=== PATIENT | male | born 1960 | race Caucasian/White ===

== ENCOUNTER 2018-01-02 11:37 | Inpatient (IN) | payer SELFPAY ==
[~2018-01-02] VITALS: Ht 172.7 cm; Wt 69.9 kg
[2018-01-02] MEDS ORDERED: SODIUM CHLORIDE 0.9% 1,000 ML IV ONE (11:50)
[2018-01-02] MEDS ORDERED: GABAPENTIN 300MG CAPSULE PO SCH (12:00)
[2018-01-02 12:43] LABS: CHLORIDE 105 mEq/L (98-107)
[2018-01-02 12:47] LABS: PHOSPHORUS 3.2 mg/dL (2.5-4.9)
[2018-01-02 12:49] LABS: ETHANOL BLOOD < 10 mg/dL
[2018-01-02 13:01] LABS: BASOPHILS % 0.6 % (0.0-2.0); EOSINOPHILS % 2.6 % (0.0-5.0); HEMATOCRIT. 40.9 % (42.0-52.0); HEMOGLOBIN. 13.7 g/dL (14.0-18.0); LYMPHOCYTES % 18.9 % (20.0-50.0); MEAN CORPUSCULAR HEMOGLOBIN 31.8 pg (28.0-32.0); MEAN CORPUSCULAR VOLUME 94.7 fL (80.0-94.0); MEAN PLATELET VOLUME 9.1 fl (7.4-10.4); NEUTROPHILS % 70.9 % (40.0-76.0); PLATELET 221 x1000/uL (130-400); RED BLOOD CELL COUNT 4.31 mill/uL (4.7-6.1); RED CELL DISTRIBUTION WIDTH 14.2 % (11.6-14.6)
[2018-01-02] MEDS ORDERED: CHLORDIAZEPOXIDE 25MG CAPSULE PO ONE (15:15)
[2018-01-02] MEDS ORDERED: MAGNESIUM/ALUMINUM HYDROXIDE/SIMETHICONE 30ML UDC PO PRN (15:45)
[2018-01-02] MEDS ORDERED: CLONIDINE 0.1MG TABLET PO PRN (15:45)
[2018-01-02] MEDS ORDERED: DOCUSATE SODIUM 100MG CAPSULE PO PRN (15:45)
[2018-01-02] MEDS ORDERED: LORAZEPAM 0.5MG TABLET PO PRN (15:45)
[2018-01-02] MEDS ORDERED: ACETAMINOPHEN 325MG TABLET PO PRN (15:45)
[2018-01-02] MEDS ORDERED: NITROGLYCERIN 0.4MG TABLET SL SL PRN (15:45)
[2018-01-02] MEDS ORDERED: GUAIFENESIN 200MG/10ML SUGAR FREE UDC PO PRN (15:45)
[2018-01-02] MEDS ORDERED: DIPHENHYDRAMINE 50MG/ML VIAL IV PRN (15:45)
[2018-01-02] MEDS ORDERED: IPRATROPIUM/ALBUTEROL 0.5-3(2.5)MG/3ML NEB INH PRN (15:45)
[2018-01-02] MEDS ORDERED: ONDANSETRON HCL 4MG/2ML VIAL IV PRN (15:45)
[2018-01-02] MEDS ORDERED: KETOROLAC 15MG/ML VIAL IV PRN (16:18)
[2018-01-02] MEDS ORDERED: NA PHOS,M-B/NA PHOS,DI-BA ENEMA 118ML PR PRN (16:30)
[2018-01-02 18:00] VITALS: BP 124/78
[2018-01-02] MEDS ORDERED: ONDANSETRON 4MG ODT PO PRN (18:00)
[2018-01-02] MEDS ORDERED: ENOXAPARIN 40MG/0.4ML SYR SUBCUT SCH (18:00)
[2018-01-02] MEDS ORDERED: MVI, ADULT NO.1 10 ML, FOLIC ACID 1 MG, THIAMINE HCL 100 MG in SODIUM CHLORIDE 0.9% 1,0... IV NR ×8 (18:00→20:00)
[2018-01-02 18:13] VITALS: BP 124/78
[2018-01-02] MEDS: LEVETIRACETAM 500MG TABLET PO SCH (20:33)
[2018-01-02] MEDS: FAMOTIDINE 20MG TABLET PO SCH (20:33)
[2018-01-02 20:34] VITALS: BP 116/58
[2018-01-02] MEDS ORDERED: ZOLPIDEM TARTRATE 5MG TABLET PO PRN (21:00)
[2018-01-02 23:23] LABS: CREATINE KINASE MB FRACTION 0.7 ng/mL (0.5-3.6)
[2018-01-03 00:14] VITALS: BP 100/63
[2018-01-03 04:00] VITALS: BP 109/66
[2018-01-03 07:29] LABS: CREATINE KINASE MB FRACTION 0.8 ng/mL (0.5-3.6)
[2018-01-03 07:48] VITALS: BP 116/67
[2018-01-03] MEDS: FAMOTIDINE 20MG TABLET PO SCH (09:12)
[2018-01-03] MEDS: LEVETIRACETAM 500MG TABLET PO SCH (09:12)
[2018-01-03 09:14] VITALS: BP 116/67
[2018-01-03 11:12] VITALS: BP 111/74
== END 2018-01-03 17:00 | disposition home or self-care (01) | DRG 53 ==
LOC: ER 11:41 → 6WST 15:03 → ENRESERV 16:33
PROVIDERS: ADMIT Internal Medicine; ATTEND Internal Medicine
DX: G40.89 Other seizures (principal); F10.10 Alcohol abuse, uncomplicated; F12.90 Cannabis use, unspecified, uncomplicated; Z59.0 Homelessness
CPT/HCPCS: 36415; 70450; 71045; 80053; 82550; 82553; 83036; 83690; 83735; 84100; 84484; 85025; 93005; 93306; 93970; C1893; G0482; J1650; J3411; J3490; J7030